=== PATIENT | male | born 1985 ===

== ENCOUNTER 2019-08-01 18:27 | Emergency (ER) | payer SELFPAY ==
[~2019-08-01] VITALS: Ht 172.7 cm; Wt 84.1 kg
[2019-08-01] MEDS ORDERED: moxifloxacin 0.5% ophthalmic drops 3ml LEFTEYE ONE (19:14)
[2019-08-01] MEDS ORDERED: ciprofloxacin 0.3% 2.5ml ophthalmic solution LEFTEYE ONE (19:20)
[2019-08-01 19:30] VITALS: BP 156/110
== END 2019-08-01 19:32 | disposition home or self-care (01) ==
LOC: ER 18:29
DX: H10.9 Unspecified conjunctivitis (principal)
CPT/HCPCS: 99282